=== PATIENT | female | born 1980 | race Caucasian/White ===

== ENCOUNTER 2025-06-16 05:12 | Emergency (ER) | payer SELFPAY ==
[2025-06-16] MEDS ORDERED: Cefdinir 300 MG CAP ONE (05:36)
[2025-06-16] MEDS ORDERED: HYDROcodone/Acetaminophen 5/325 mg Tablet ONE (05:36)
== END 2025-06-16 05:40 | disposition home or self-care (01) ==
LOC: NAV ERS 05:12
DX: H66.92 Otitis media, unspecified, left ear (principal); F17.290 Nicotine dependence, other tobacco product, uncomplicated
CPT/HCPCS: 99282